=== PATIENT | female | born 1975 | race Caucasian/White ===

== ENCOUNTER 2024-07-16 12:12 | Emergency (ER) | payer OTHER ==
[2024-07-16 12:33] VITALS: RESP 18; BMI 24.7
[2024-07-16 13:12] VITALS: BP 143/82; PULSE 71; TEMP 98.6
[2024-07-16] MEDS ORDERED: ACETAMINOPHEN INJECTION 100 ML ONE (13:50)
[2024-07-16] MEDS: ACETAMINOPHEN 1000 MG/100 ML BAG IVPB ONE (14:05)
[2024-07-16 14:20] LABS: HEMATOCRIT 45.4 % (32.4-45.2); HEMOGLOBIN 14.7 G/dL (10.7-15.3); MCH 31.8 pg (25.7-33.7); MCHC 32.5 g/dl (32.0-36.0); MEAN CELL VOLUME 98.1 fl (80-96); MEAN PLT VOLUME 8.2 fl (7.5-11.1); PLATELET COUNT 202.8 10^3/uL (134-434); RBC 4.63 10^6/uL (3.60-5.2); RDW 13.4 % (11.6-15.6); WHITE BLOOD COUNT 6.3 10^3/uL (4.0-10.8)
[2024-07-16 14:31] LABS: ALBUMIN 4.4 g/dl (3.4-5.0); BILIRUBIN,TOTAL 0.7 mg/dl (0.2-1); CREATININE 0.9 mg/dl (0.6-1.3); TOT PROT 6.7 g/dl (6.4-8.2)
[2024-07-16 15:13] LABS: PLATELET ESTIMATE ADEQUATE
[2024-07-16] MEDS ORDERED: KETOROLAC TROMETHAMINE 30 MG/1 ML VIAL ONE (15:44)
[2024-07-16] MEDS: KETOROLAC TROMETHAMINE 30 MG/1 ML VIAL IVPUSH ONE (15:47)
== END 2024-07-16 16:40 | disposition home or self-care (01) ==
LOC: FER 12:12
DX: R10.30 Lower abdominal pain, unspecified (principal); M79.652 Pain in left thigh; M54.50 Low back pain, unspecified; X50.0XXA Overexertion from strenuous movement or load, initial encounter
CPT/HCPCS: 36415; 74177-TC; 80053; 81003; 81015; 84703; 85027; 87086; 99285-25; J0131; Q9967